=== PATIENT | female | born 1945 | race Caucasian/White ===

== ENCOUNTER 2020-09-11 19:02 | Inpatient (IN) | payer MEDICARE, OTHER ==
[2020-09-11] MEDS ORDERED: METHYLPREDNISOLONE INJ 125 MG/2 ML SDV IV ONE (20:49)
[2020-09-11] MEDS ORDERED: IPRATROPIUM/ALBUTEROL 0.5-2.5 MG/3 ML AMPUL NEB ONE ×2 (20:49→22:01)
[2020-09-11] MEDS ORDERED: MAGNESIUM SULFATE/D5W 1 GM/100 ML RTUPB IV ONE ×2 (20:49→22:02)
--- NOTE | 2020-09-11 20:53 | ER Document Report ---
ED Respiratory Problem - General Chief Complaint: Shortness Of Breath Stated Complaint: DIFFICULTY BREATHING Time Seen by Provider: 09/11/20 20:42 Notes: Patient is a 75-year-old female who comes emergency department for chief complaint of shortness of breath, wheezing, cough since yesterday, she states tonight she could not catch her breath. She denies sputum production, fever, chest pain, or any recent sick contacts. She has not had a recent COVID-19 test. She does smoke, she has a home albuterol nebulizer which was not helping. She states she is diagnosed with "maybe early COPD". She is not on home oxygen. Patient was seen by her primary care yesterday for frequency of urination and dysuria, placed on an antibiotic that she just started, states she still has the urinary symptoms. Patient denies any other complaints. She de nies medical history otherwise including cardiac history, diabetes, hypertension, hyperlipidemia. - Related Data Allergies/Adverse Reactions: Sulfa (Sulfonamide Antibiotics) Allergy (Verified 09/11/20 20:11) Home Medications: bp med/inhaler Past Medical History - General Information source: Patient - Social History Smoking Status: Current Every Day Smoker Smoking Education Provided: Yes - <3 min Frequency of alcohol use: Heavy Drug Abuse: None Lives with: Family Family History: Reviewed & Not Pertinent Patient has homicidal ideation: No - Past Medical History Cardiac Medical History: Reports: Hx Hypertension Pulmonary Medical History: Reports: Hx COPD Past Surgical History: Reports: Hx Appendectomy, Hx Gynecologic Surgery - ectopic x2 - Immunizations Immunizations up to date: Yes Hx Diphtheria, Pertussis, Tetanus Vaccination: Yes Review of Systems - Review of Systems Constitutional: See HPI EENT: No symptoms reported Cardiovascular: See HPI Respiratory: See HPI Gastrointestinal: No symptoms reported Genitourinary: No symptoms reported Female Genitourinary: No symptoms reported Musculoskeletal: No symptoms reported Skin: No symptoms reported Hematologic/Lymphatic: No symptoms reported Neurological/Psychological: No symptoms reported Physical Exam - Vital signs Vitals: Temp Pulse Resp BP Pulse Ox 98.6 F 97 26 H 151/40 H 88 L 09/11/20 19:18 09/11/20 19:18 09/11/20 19:18 09/11/20 19:18 09/11/20 19:18 - Notes Notes: GENERAL: Alert, interacts well. No acute distress. HEAD: Normocephalic, atraumatic. EYES: Pupils equal, round, and reactive to light. Extraocular movements intact. ENT: Oral mucosa moist, tongue midline. Oropharynx unremarkable. Airway patent. Nares patent, sinuses non-tender, ear canals unremarkable, TM's intact. NECK: Full range of motion. Supple. Trachea midline. No lymphadenopathy. LUNGS: Clear to auscultation bilaterally, no wheezes, rales, or rhonchi. No respiratory distress. Non-tender chest wall. HEART: Regular rate and rhythm. No murmur ABDOMEN: Soft, non-tender. Non-distended. Bowel sounds present in all 4 quadrants. GENITOURINARY: Deferred EXTREMITIES: Moves all 4 extremities spontaneously. No edema, normal radial and dorsalis pedis pulses bilaterally. No cyanosis. BACK: no cervical, thoracic, lumbar midline tenderness. No saddle anesthesia, normal distal neurovascular exam. Moves all extremities in full range of motion. NEUROLOGICAL: Alert and oriented x3. Normal speech. Cranial nerves II through XII grossly intact. Strength 5/5 in all extremities. PSYCH: Normal affect, normal mood. SKIN: Warm, dry, normal turgor. No rashes or lesions noted. Course - Re-evaluation Re-evalutation: On initial evaluation patient has tachypnea, she was hypoxic at 88% on room air, she was placed on oxygen, initiated duo nebs, steroids, magnesium. Initially breath sounds are very decreased but on reevaluation breath sounds opened up, wheezing and rhonchi noted. Tachypnea significantly improved and then resolved after additional treatments. Chest x-ray showing COPD, questionable right upper lobe pneumonia. CBC shows leukocytosis at 24,000 with bandemia at 8% left shift. Chemistry nonspecific, troponin is not elevated, venous blood gas unremarkable. Patient still with some tachypnea intermittently and shortness of breath along with I suspect bacterial pneumonia. She is also 75 years old. Covering with antibiotics for community-acquired pneumonia. Discussed with patient, will discuss with hospitalist for admission for patient with significant COPD exacerbation, hypoxia requiring oxygen, pneumonia with significant leukocytosis and left shift. Patient states appreciation and agreement. Discussed with Dr. Olvera, he evaluated the patient, patient excepted to medical floor full admission. - Vital Signs Vital signs: Temp Pulse Resp BP Pulse Ox 98.5 F 97 18 104/67 95 09/12/20 00:01 09/11/20 19:18 09/12/20 02:00 09/12/20 02:00 09/12/20 02:00 - Laboratory Results Result Diagrams: 09/11/20 21:20 09/11/20 22:00 Laboratory Results Interpreted: 09/11/20 09/11/20 09/11/20 20:49 21:20 21:20 WBC 24.7 H Seg Neuts % (Manual) 88 H Band Neutrophils % 8 H Lymphocytes % (Manual) 3 L Monocytes % (Manual) 1 L Abs Neuts (Manual) 23.7 H VBG pH 7.47 H VBG pCO2 30.0 L Sodium Glucose Total Bilirubin Urine Protein 30 H Urine Ketones 20 H Urine Blood MODERATE H Urine Urobilinogen 2.0 H Ur Leukocyte Esterase SMALL H 09/11/20 22:00 WBC Seg Neuts % (Manual) Band Neutrophils % Lymphocytes % (Manual) Monocytes % (Manual) Abs Neuts (Manual) VBG pH VBG pCO2 Sodium 131.9 L Glucose 149 H Total Bilirubin 1.8 H Urine Protein Urine Ketones Urine Blood Urine Urobilinogen Ur Leukocyte Esterase Critical Laboratory Results Reviewed: No Critical Results - Radiology Results Critical Radiology Results Reviewed: No Critical Results Discharge - Discharge Clinical Impression: Hypoxia, COPD exacerbation, Bandemia Right upper lobe pneumonia Qualifiers: Pneumonia type: due to unspecified organism Qualified Code(s): J18.9 - Pneumonia, unspecified organism Condition: Stable Disposition: ADMITTED INPATIENT Admitting Provider: Unit Admitted: Medical Floor
[2020-09-11 21:26] LABS: APPEARANCE,URINE SLIGHTLY-CLOUDY; BILIRUBIN,URINE NEGATIVE (NEGATIVE); COLOR,URINE AMBER; GLUCOSE, URINE NEGATIVE (NEGATIVE); KETONES,URINE 20 mg/dL (NEGATIVE); LEUKOCYTE ESTERASE,URINE SMALL (NEGATIVE); NITRITE,URINE NEGATIVE (NEGATIVE); PROTEIN,URINE 30 mg/dL (NEGATIVE); URINE SPECIFIC GRAVITY 1.019
[2020-09-11 21:43] LABS: HEMATOCRIT 40.8 % (36.0-47.0); MEAN CORPUSCULAR HEMOGLOBIN 30.9 pg (27.0-33.4); MEAN CORPUSCULAR HGB CONC 34.3 g/dL (32.0-36.0); MEAN CORPUSCULAR VOLUME 90 fl (80-97); PLATELET COUNT 295 10^3/uL (150-450); RED BLOOD COUNT 4.54 10^6/uL (3.72-5.28); RED CELL DISTRIBUTION WIDTH 12.9 % (11.5-14.0); WHITE BLOOD COUNT 24.7 10^3/uL (4.0-10.5)
--- NOTE | 2020-09-11 21:44 | RADIOLOGY REPORT (SQ) ---
EXAM DESCRIPTION: Site: CHEST SINGLE VIEW RP: XR CHEST 1 VIEW CLINICAL HISTORY: 75 years Female; difficulty breathing; COMPARISON: None. FINDINGS: Lungs: Hyperinflated. There are mild interstitial changes in the upper lobes, slightly worse on the right. No focal acute infiltrates. No pneumothorax or pleural effusion. Mediastinum: Mild aortic calcification. Mediastinum is otherwise unremarkable. Bones: Bony structures are unremarkable. IMPRESSION: 1. Hyperinflation and mild chronic interstitial changes, consistent with COPD. 2. No focal acute infiltrates. Cannot exclude an early/mild right upper lobe pneumonia, superimposed on the mild chronic changes.
[2020-09-11 21:47] LABS: VENOUS BLOOD BASE EXCESS -1.5 mmol/L; VENOUS BLOOD HCO3 21.3 mmol/L (20-32); VENOUS BLOOD PH 7.47 (7.30-7.42)
[2020-09-11 22:01] LABS: ABSOLUTE LYMPHOCYTES# (MANUAL) 0.7 10^3/uL (0.5-4.7); ABSOLUTE MONOCYTES # (MANUAL) 0.2 10^3/uL (0.1-1.4); BAND NEUTROPHILS % (MANUAL) 8 % (3-5); BASOPHILS % (MANUAL) 0 % (0-2); EOSINOPHILS % (MANUAL) 0 % (0-6); LYMPHOCYTES % (MANUAL) 3 % (13-45); MONOCYTES % (MANUAL) 1 % (3-13); SEGMENTED NEUTROPHILS % (MAN) 88 % (42-78); TOTAL CELLS COUNTED 100
[2020-09-11 22:03] LABS: RBC MORPHOLOGY COMMENT NORMO-CYTIC/CHROMIC; TOXIC VACUOLATION PRESENT
[2020-09-11 22:04] LABS: PLATELET COMMENT ADEQUATE
[2020-09-11 22:26] LABS: ALKALINE PHOSPHATASE 92 U/L (38-126); ANION GAP 7 (5-19); ASPARTATE AMINO TRANSFERASE 28 U/L (14-36); BILIRUBIN,DIRECT 0.2 mg/dL (0.0-0.4); BILIRUBIN,TOTAL 1.8 mg/dL (0.2-1.3); BLOOD UREA NITROGEN 17 mg/dL (7-20); CARBON DIOXIDE 25 mmol/L (22-30); CHLORIDE 100 mmol/L (98-107); GLUCOSE 149 mg/dL (75-110); POTASSIUM 3.6 mmol/L (3.6-5.0); TOTAL PROTEIN 7.4 g/dL (6.3-8.2)
[2020-09-11] MEDS ORDERED: AZITHROMYCIN INJ 500 MG VIAL IV ONE (22:39)
[2020-09-11] MEDS ORDERED: CEFTRIAXONE 1 GM/D5W RTU 1 GM/50 ML RTUPB IV ONE (22:39)
[2020-09-12] MEDS ORDERED: IPRATROPIUM/ALBUTEROL 0.5-2.5 MG/3 ML AMPUL NEB PRN (00:08)
[2020-09-12] MEDS ORDERED: ONDANSETRON HCL INJ/PF 4 MG/2 ML SDV IV PRN (00:08)
[2020-09-12] MEDS ORDERED: ACETAMINOPHEN 325 MG TABLET PO PRN (00:08)
--- NOTE | 2020-09-12 00:32 | PDOC H&P ---
History of Present Illness Patient complains of: Shortness of breath History of Present Illness: COLT CHI is a 75 year old female with a history of COPD and hypertension who presents to the ED with 1 day duration of shortness of breath. She stated that the shortness of breath started shortly after she woke up this morning and she tried to use albuterol inhaler but it did not help so she called EMS and was brought into the ED. She also reports that she was having wheezing but denies any associated cough, fever, chills, palpitation, dizziness, any recent sick contact history. She also denies any nausea, vomiting, diarrhea, nasal congestion, sore throat, any change in her sense of smell or taste. She states that she was seen by her primary care 1 day ago and was started on treatment for possible urinary tract infection. She is a chronic smoker and currently smokes half pack a day. Past Medical History Cardiac Medical History: Reports: Hypertension Pulmonary Medical History: Reports: Chronic Obstructive Pulmonary Disease (COPD) Past Surgical History Past Surgical History: Reports: Appendectomy Social History Information Source: Patient Lives with: Family Smoking Status: Current Every Day Smoker Frequency of Alcohol Use: Occasional Hx Recreational Drug Use: No Drugs: None - Advance Directive Resuscitation Status: Full Code Family History Parental Family History Reviewed: Yes Children Family History Reviewed: Yes Sibling(s) Family History Reviewed.: Yes Medication/Allergy Allergies/Adverse Reactions: Sulfa (Sulfonamide Antibiotics) Allergy (Verified 09/11/20 20:11) Review of Systems Constitutional: ABSENT: chills, fever(s), headache(s), weight gain, weight loss Eyes: ABSENT: visual disturbances Ears: ABSENT: hearing changes Nose, Mouth, and Throat: ABSENT: headache(s), mouth pain, sore throat Cardiovascular: ABSENT: chest pain, dyspnea on exertion, edema, orthropnea, palpitations Respiratory: PRESENT: as per HPI Gastrointestinal: ABSENT: abdominal pain, constipation, diarrhea, hematemesis, hematochezia, nausea, vomiting Genitourinary: PRESENT: as per HPI Musculoskeletal: ABSENT: joint swelling Integumentary: ABSENT: rash, wounds Neurological: ABSENT: abnormal gait, abnormal speech, confusion, dizziness, focal weakness, syncope Psychiatric: ABSENT: anxiety, depression, homidical ideation, suicidal ideation Endocrine: ABSENT: cold intolerance, heat intolerance, polydipsia, polyuria Hematologic/Lymphatic: ABSENT: easy bleeding, easy bruising Physical Exam Vital Signs: Temp Pulse Resp BP Pulse Ox 98.6 F 97 21 H 116/71 94 09/11/20 19:18 09/11/20 19:18 09/11/20 23:01 09/11/20 23:00 09/11/20 23:01 Intake & Output 09/10/20 09/11/20 09/12/20 06:59 06:59 06:59 Intake Total 200 Balance 200 Weight 52.617 kg Additional comments: GENERAL APPEARANCE: Alert and oriented x3, in no acute distress HEENT: Normocephalic and atraumatic. No scleral icterus. Moist oral mucosa NECK: Supple. No lymphadenopathy or tenderness. No carotid bruit. No JVD CHEST: Symmetric. Nontender to palpation. LUNGS: Clear with good air entry bilaterally. Has faint scattered wheezes bilaterally HEART: Regular rate and rhythm with normal S1 and S2. No murmurs, gallops, or rubs. ABDOMEN: Flat, soft, active bowel sounds, no direct or rebound tenderness. No organomegaly detected. EXTREMITIES: No cyanosis, clubbing, or edema. MUSCULOSKELETAL: No deformity, atrophy or swelling noted PSYCHIATRIC: Recent and remote memory is intact. Appropriate mood and affect. SKIN: Warm, dry, and well perfused. No lesions or rashes are noted. NEUROLOGIC: No focal sensory or motor deficits are noted. Results Laboratory Results: 09/11/20 21:20 09/11/20 22:00 09/11/20 09/11/20 09/11/20 20:49 21:20 21:20 WBC 24.7 H RBC 4.54 Hgb 14.0 Hct 40.8 MCV 90 MCH 30.9 MCHC 34.3 RDW 12.9 Plt Count 295 Seg Neutrophils % Not Reportable VBG pH VBG pCO2 VBG HCO3 VBG Base Excess Sodium Cancelled Potassium Cancelled Chloride Cancelled Carbon Dioxide Cancelled Anion Gap Cancelled BUN Cancelled Creatinine Cancelled Est GFR ( Amer) Cancelled Est GFR (Non-Af Amer) Cancelled Glucose Cancelled Lactic Acid Calcium Cancelled Total Bilirubin Cancelled AST Cancelled Alkaline Phosphatase Cancelled Total Protein Cancelled Albumin Cancelled Urine Color YASMEEN Urine Appearance SLIGHTLY-CLOUDY Urine pH 5.0 Ur Specific [place] 1.019 Urine Protein 30 H Urine Glucose (UA) NEGATIVE Urine Ketones 20 H Urine Blood MODERATE H Urine Nitrite NEGATIVE Ur Leukocyte Esterase SMALL H Urine WBC (Auto) 22 Urine RBC (Auto) 23 09/11/20 09/11/20 09/11/20 21:20 22:00 22:00 WBC RBC Hgb Hct MCV MCH MCHC RDW Plt Count Seg Neutrophils % VBG pH 7.47 H VBG pCO2 30.0 L VBG HCO3 21.3 VBG Base Excess -1.5 Sodium 131.9 L Potassium 3.6 Chloride 100 Carbon Dioxide 25 Anion Gap 7 BUN 17 Creatinine 0.54 Est GFR ( Amer) > 60 Est GFR (Non-Af Amer) Glucose 149 H Lactic Acid 1.5 Calcium 9.0 Total Bilirubin 1.8 H AST 28 Alkaline Phosphatase 92 Total Protein 7.4 Albumin 4.0 Urine Color Urine Appearance Urine pH Ur Specific [place] Urine Protein Urine Glucose (UA) Urine Ketones Urine Blood Urine Nitrite Ur Leukocyte Esterase Urine WBC (Auto) Urine RBC (Auto) 09/11/20 09/11/20 21:20 22:00 Troponin I Cancelled < 0.012 Impressions: Chest X-Ray 09/11/20 20:49 IMPRESSION: 1. Hyperinflation and mild chronic interstitial changes, consistent with COPD. 2. No focal acute infiltrates. Cannot exclude an early/mild right upper lobe pneumonia, superimposed on the mild chronic changes. Assessment and Plan - Diagnosis (1) COPD exacerbation Is this a current diagnosis for this admission?: Yes Plan: Patient presents with a 1 day duration of shortness of breath with associated wheezing Oxygen saturation was 88% on presentation to the ED Likely precipitated by community-acquired pneumonia Chest x-ray showed hyperinflated lungs and chronic interstitial changes, early right upper lobe pneumonia could not be excluded Patient received Solu-Medrol, magnesium sulfate and DuoNeb at the ED with interval improvement in her symptoms Continue breathing treatment with DuoNeb Placed her on prednisone 40 mg p.o. daily Currently on 2 L intranasal oxygen, will titrate down and try to wean her off oxygen On ceftriaxone and azithromycin for possible right upper lobe pneumonia Closely monitor respiratory parameters (2) Right upper lobe pneumonia Qualifiers: Pneumonia type: due to unspecified organism Qualified Code(s): J18.9 - Pneumonia, unspecified organism Is this a current diagnosis for this admission?: Yes Plan: Patient currently admitted for COPD exacerbation Denies any significant change in her chronic cough CBC showed WBC count of 24.7 with left shift Chest x-ray showed hyperinflated lungs with chronic interstitial changes but was concerning for possible early right upper lobe pneumonia Started on ceftriaxone and azithromycin Follow-up with blood culture (3) Leukocytosis Is this a current diagnosis for this admission?: Yes Plan: Likely due to pneumonia/UTI versus steroid administered for COPD exacerbation Continue treating pneumonia as stated above Continue monitoring CBC (4) UTI (urinary tract infection) Is this a current diagnosis for this admission?: Yes Plan: Patient reports increased frequency of urination and urgency Was being treated for UTI by his PCP and was on an unspecified antibiotic for the past 2 days Currently on ceftriaxone, follow-up with urine culture/sensitivity and adjust antibiotic accordingly (5) Hypertension Is this a current diagnosis for this admission?: Yes Plan: Blood pressure is currently in acceptable range Continue home medications Low-sodium diet Continue monitoring BP (6) Tobacco dependence Is this a current diagnosis for this admission?: Yes Plan: Currently patient smokes half pack a day Counseled her to quit or cut down smoking and patient reported that she is motivated to quit Offered nicotine patch while inpatient but she deferred stating that she would not needed (7) Hyponatremia Is this a current diagnosis for this admission?: Yes Plan: Patient has mild-hyponatremia, he is asymptomatic Serum sodium level was 132 Was hydrated at the ED with normal saline We will continue monitoring serum sodium level - Time Time Spent with patient: 35 or more minutes Total Critical Time (Minutes): 45 Medications reviewed and adjusted accordingly: Yes Anticipated Discharge Disposition: Home, Self Care Anticipated Discharge Timeframe: within 48 hours - Inpatient Certification Based on my medical assessment, after consideration of the patient's comorbidities, presenting symptoms, or acuity I expect that the services needed warrant INPATIENT care.: Yes I certify that my determination is in accordance with my understanding of Medicare's requirements for reasonable and necessary INPATIENT services [42 CFR 412.3e].: Yes Medical Necessity: Failure to Improve With Outpatient Therapy, Need Close Monitoring Due to Risk of Patient Decompensation, Need for Nebulizer Therapy and Monitoring of Response, Need for IV Antibiotics, Risk of Complication if Not Cared For in Hospital Post Hospital Care: D/C or Transfer Summary
[2020-09-12 06:12] LABS: HEMATOCRIT 37.6 % (36.0-47.0); HEMOGLOBIN 12.8 g/dL (12.0-15.5); MEAN CORPUSCULAR HEMOGLOBIN 30.5 pg (27.0-33.4); MEAN CORPUSCULAR VOLUME 90 fl (80-97); PLATELET COUNT 248 10^3/uL (150-450); RED BLOOD COUNT 4.19 10^6/uL (3.72-5.28); RED CELL DISTRIBUTION WIDTH 13.4 % (11.5-14.0); WHITE BLOOD COUNT 23.3 10^3/uL (4.0-10.5)
[2020-09-12 06:29] LABS: ANION GAP 5 (5-19); BLOOD UREA NITROGEN 16 mg/dL (7-20); CALCIUM 8.8 mg/dL (8.4-10.2); CARBON DIOXIDE 28 mmol/L (22-30); CHLORIDE 100 mmol/L (98-107); GLUCOSE 154 mg/dL (75-110); POTASSIUM 3.7 mmol/L (3.6-5.0)
[2020-09-12 06:44] LABS: ABSOLUTE LYMPHOCYTES# (MANUAL) 0.5 10^3/uL (0.5-4.7); BAND NEUTROPHILS % (MANUAL) 1 % (3-5); BASOPHILS % (MANUAL) 0 % (0-2); EOSINOPHILS % (MANUAL) 0 % (0-6); LYMPHOCYTES % (MANUAL) 2 % (13-45); MONOCYTES % (MANUAL) 0 % (3-13); SEGMENTED NEUTROPHILS % (MAN) 97 % (42-78); TOTAL CELLS COUNTED 100
[2020-09-12 06:45] LABS: PLATELET COMMENT ADEQUATE; RBC MORPHOLOGY COMMENT NORMO-CYTIC/CHROMIC; TOXIC GRANULATION SLIGHT
[2020-09-12] MEDS: FAMOTIDINE 20 MG TABLET PO SCH ×2 (09:18→21:48)
[2020-09-12] MEDS: PREDNISONE 20 MG TABLET PO SCH (09:18)
[2020-09-12] MEDS: ENOXAPARIN SODIUM INJ 40 MG/0.4 ML DISP.SYRIN SUBCUT SCH (09:19)
[2020-09-12] MEDS: AZITHROMYCIN 500 MG in DEXTROSE 5%-WATER 250 ML IV SCH (21:48)
[2020-09-12] MEDS ORDERED: CEFTRIAXONE 1 GM/D5W RTU 1 GM/50 ML RTUPB IV SCH (22:00)
[2020-09-13 05:06] LABS: HEMATOCRIT 35.1 % (36.0-47.0); HEMOGLOBIN 12.1 g/dL (12.0-15.5); MEAN CORPUSCULAR HEMOGLOBIN 31.1 pg (27.0-33.4); MEAN CORPUSCULAR HGB CONC 34.5 g/dL (32.0-36.0); MEAN CORPUSCULAR VOLUME 90 fl (80-97); PLATELET COUNT 309 10^3/uL (150-450); RED CELL DISTRIBUTION WIDTH 13.3 % (11.5-14.0)
[2020-09-13 05:53] LABS: ABSOLUTE LYMPHOCYTES# (MANUAL) 2.9 10^3/uL (0.5-4.7); ABSOLUTE MONOCYTES # (MANUAL) 1.6 10^3/uL (0.1-1.4); BAND NEUTROPHILS % (MANUAL) 2 % (3-5); BASOPHILS % (MANUAL) 0 % (0-2); EOSINOPHILS % (MANUAL) 1 % (0-6); LYMPHOCYTES % (MANUAL) 8 % (13-45); MONOCYTES % (MANUAL) 5 % (3-13); SEGMENTED NEUTROPHILS % (MAN) 83 % (42-78); TOTAL CELLS COUNTED 100
[2020-09-13 05:54] LABS: PLATELET CLUMPS PRESENT; PLATELET COMMENT ADEQUATE; RBC MORPHOLOGY COMMENT NORMO-CYTIC/CHROMIC
[2020-09-13 05:56] LABS: WHITE BLOOD COUNT 32.4 10^3/uL (4.0-10.5)
[2020-09-13] MEDS: PREDNISONE 20 MG TABLET PO SCH (09:30)
[2020-09-13] MEDS: ENOXAPARIN SODIUM INJ 40 MG/0.4 ML DISP.SYRIN SUBCUT SCH (09:31)
[2020-09-13] MEDS: FAMOTIDINE 20 MG TABLET PO SCH ×2 (09:31→21:27)
[2020-09-13 13:58] LABS: PATH REVIEW PATHOLOGIST REVIEWED
--- NOTE | 2020-09-13 14:36 | PDOC PROGRESS REPORT ---
Subjective Date:: 09/13/20 Reason For Visit: ACUTE HYPOXIC RESPIRATORY FAILURE,COPD EXACERBATIO Physical Exam Vital Signs: Temp Pulse Resp BP Pulse Ox 97.3 F 65 12 110/49 L 94 09/13/20 11:15 09/13/20 14:12 09/13/20 14:12 09/13/20 11:15 09/13/20 14:12 Intake & Output 09/12/20 09/13/20 09/14/20 06:59 06:59 06:59 Intake Total 250 300 680 Balance 250 300 680 Weight 48.1 kg 47.7 kg General appearance: PRESENT: no acute distress, thin Head exam: PRESENT: atraumatic, normocephalic Eye exam: PRESENT: conjunctiva pink, EOMI, PERRLA. ABSENT: scleral icterus Ear exam: PRESENT: normal external ear exam Mouth exam: PRESENT: moist, tongue midline Neck exam: ABSENT: carotid bruit, JVD, lymphadenopathy, thyromegaly Respiratory exam: PRESENT: decreased breath sounds, wheezes - scattered. ABSENT: rales, rhonchi Cardiovascular exam: PRESENT: RRR, +S1, +S2. ABSENT: diastolic murmur, rubs, systolic murmur Pulses: PRESENT: normal dorsalis pedis pul Vascular exam: PRESENT: normal capillary refill GI/Abdominal exam: PRESENT: normal bowel sounds, soft. ABSENT: distended, guarding, mass, organolmegaly, rebound, tenderness Rectal exam: PRESENT: deferred Extremities exam: PRESENT: full ROM. ABSENT: calf tenderness, clubbing, pedal edema Neurological exam: PRESENT: alert, awake, oriented to person, oriented to place, oriented to time, oriented to situation, CN II-XII grossly intact. ABSENT: motor sensory deficit Psychiatric exam: PRESENT: appropriate affect, normal mood. ABSENT: homicidal ideation, suicidal ideation Skin exam: PRESENT: dry, intact, warm. ABSENT: cyanosis, rash Results Laboratory Results: 09/13/20 04:31 09/12/20 05:26 09/13/20 04:31 WBC 32.4 H* RBC 3.90 Hgb 12.1 Hct 35.1 L MCV 90 MCH 31.1 MCHC 34.5 RDW 13.3 Plt Count 309 Seg Neutrophils % Not Reportable 09/11/20 09/11/20 21:20 22:00 Troponin I Cancelled < 0.012 Impressions: Chest X-Ray 09/11/20 20:49 IMPRESSION: 1. Hyperinflation and mild chronic interstitial changes, consistent with COPD. 2. No focal acute infiltrates. Cannot exclude an early/mild right upper lobe pneumonia, superimposed on the mild chronic changes. Assessment and Plan - Diagnosis (1) Acute hypoxemic respiratory failure Is this a current diagnosis for this admission?: Yes (2) Protein-calorie malnutrition, moderate Is this a current diagnosis for this admission?: Yes (3) COPD exacerbation Is this a current diagnosis for this admission?: Yes Plan: Patient presents with a 1 day duration of shortness of breath with associated wheezing Oxygen saturation was 88% on presentation to the ED Likely precipitated by community-acquired pneumonia Chest x-ray showed hyperinflated lungs and chronic interstitial changes, early right upper lobe pneumonia could not be excluded Patient received Solu-Medrol, magnesium sulfate and DuoNeb at the ED with interval improvement in her symptoms Continue breathing treatment with DuoNeb Placed her on prednisone 40 mg p.o. daily Currently on 2 L intranasal oxygen, will titrate down and try to wean her off oxygen On ceftriaxone and azithromycin for possible right upper lobe pneumonia Closely monitor respiratory parameters 09/13 Improving, still has scattered wheezing Continue oxygen support and wean as tolerated (4) Hypertension Is this a current diagnosis for this admission?: Yes Plan: Blood pressure is currently in acceptable range Continue home medications Low-sodium diet Continue monitoring BP (5) Leukocytosis Is this a current diagnosis for this admission?: Yes Plan: Likely due to pneumonia/UTI versus steroid administered for COPD exacerbation Continue treating pneumonia as stated above Possibly leukemoid reaction. There is no evidence of worsening clinical infection. Will taper steroids and continue to monitor CBC (6) Right upper lobe pneumonia Qualifiers: Pneumonia type: due to unspecified organism Qualified Code(s): J18.9 - Pneumonia, unspecified organism Is this a current diagnosis for this admission?: Yes Plan: Patient currently admitted for COPD exacerbation Denies any significant change in her chronic cough CBC showed WBC count of 24.7 with left shift Chest x-ray showed hyperinflated lungs with chronic interstitial changes but was concerning for possible early right upper lobe pneumonia Cont on ceftriaxone and azithromycin (7) Tobacco dependence Is this a current diagnosis for this admission?: Yes Plan: Currently patient smokes half pack a day Counseled her to quit or cut down smoking and patient reported that she is motivated to quit (8) UTI (urinary tract infection) Is this a current diagnosis for this admission?: Yes Plan: Patient reports increased frequency of urination and urgency Was being treated for UTI by his PCP and was on an unspecified antibiotic for the past 2 days No urine culture obtained - Time Time Spent with patient: 15-24 minutes Medications reviewed and adjusted accordingly: Yes Anticipated Discharge Disposition: Home, Self Care Anticipated Discharge Timeframe: within 48 hours
[2020-09-13] MEDS: AZITHROMYCIN 500 MG in DEXTROSE 5%-WATER 250 ML IV SCH (21:28)
[2020-09-13] MEDS: CEFTRIAXONE SODIUM 1,000 MG in DEXTROSE 5%-WATER 50 ML IV SCH (23:29)
[2020-09-14 07:20] LABS: ABSOLUTE EOSINOPHILS # (AUTO) 0.2 10^3/uL (0.0-0.6); ABSOLUTE LYMPHOCYTES (AUTO) 2.6 10^3/uL (0.5-4.7); ABSOLUTE MONOCYTES (AUTO) 0.9 10^3/uL (0.1-1.4); ABSOLUTE NEUT (AUTO) 12.8 10^3/uL (1.7-8.2); BASOPHILS % (AUTO) 0.2 % (0-2); EOSINOPHILS % (AUTO) 1.1 % (0-6); HEMATOCRIT 37.6 % (36.0-47.0); HEMOGLOBIN 12.6 g/dL (12.0-15.5); LYMPHOCYTES % (AUTO) 15.7 % (13-45); MEAN CORPUSCULAR HEMOGLOBIN 30.5 pg (27.0-33.4); MEAN CORPUSCULAR HGB CONC 33.6 g/dL (32.0-36.0); MEAN CORPUSCULAR VOLUME 91 fl (80-97); MONOCYTES % (AUTO) 5.5 % (3-13); PLATELET COUNT 299 10^3/uL (150-450); RED BLOOD COUNT 4.14 10^6/uL (3.72-5.28); RED CELL DISTRIBUTION WIDTH 13.6 % (11.5-14.0); SEGMENTED NEUTROPHILS % (AUTO) 77.5 % (42-78); TOTAL CELLS COUNTED % (AUTO) 100 %; WHITE BLOOD COUNT 16.5 10^3/uL (4.0-10.5)
[2020-09-14] MEDS: FAMOTIDINE 20 MG TABLET PO SCH ×2 (09:23→22:34)
[2020-09-14] MEDS: PREDNISONE 20 MG TABLET PO SCH (09:24)
[2020-09-14] MEDS: ENOXAPARIN SODIUM INJ 40 MG/0.4 ML DISP.SYRIN SUBCUT SCH (09:25)
--- NOTE | 2020-09-14 12:11 | PDOC PROGRESS REPORT ---
Subjective Date:: 09/14/20 Subjective:: Patient reports that she is feeling better. Wheezing is much improved. She how ever did state that she had episodes of difficulty breathing and wheezing during the night that required bronchodilators. Her oxygenation has improved and likely will not require oxygen at home Reason For Visit: ACUTE HYPOXIC RESPIRATORY FAILURE,COPD EXACERBATIO Physical Exam Vital Signs: Temp Pulse Resp BP Pulse Ox 97.4 F 68 16 132/68 H 98 09/14/20 11:17 09/14/20 11:17 09/14/20 11:17 09/14/20 11:17 09/14/20 11:17 Intake & Output 09/13/20 09/14/20 09/15/20 06:59 06:59 06:59 Intake Total 300 1170 240 Balance 300 1170 240 Weight 47.7 kg 48 kg General appearance: PRESENT: no acute distress, thin Head exam: PRESENT: atraumatic, normocephalic Eye exam: PRESENT: EOMI, PERRLA. ABSENT: scleral icterus Mouth exam: PRESENT: moist, tongue midline Neck exam: ABSENT: carotid bruit, JVD, lymphadenopathy, thyromegaly Respiratory exam: PRESENT: other - Improved air entry with scattered wheezing. ABSENT: rales, rhonchi, wheezes Cardiovascular exam: PRESENT: RRR, +S1, +S2. ABSENT: diastolic murmur, rubs, systolic murmur Pulses: PRESENT: normal dorsalis pedis pul Vascular exam: PRESENT: normal capillary refill GI/Abdominal exam: PRESENT: normal bowel sounds, soft. ABSENT: distended, guarding, mass, organolmegaly, rebound, tenderness Rectal exam: PRESENT: deferred Extremities exam: PRESENT: full ROM. ABSENT: calf tenderness, clubbing, pedal edema Neurological exam: PRESENT: alert, awake, oriented to person, oriented to place, oriented to time, oriented to situation, CN II-XII grossly intact. ABSENT: motor sensory deficit Psychiatric exam: PRESENT: appropriate affect, normal mood. ABSENT: homicidal ideation, suicidal ideation Skin exam: PRESENT: dry, intact, warm. ABSENT: cyanosis, rash Results Laboratory Results: 09/14/20 06:54 09/12/20 05:26 09/14/20 06:54 WBC 16.5 H RBC 4.14 Hgb 12.6 Hct 37.6 MCV 91 MCH 30.5 MCHC 33.6 RDW 13.6 Plt Count 299 Seg Neutrophils % 77.5 09/11/20 09/11/20 21:20 22:00 Troponin I Cancelled < 0.012 Impressions: Chest X-Ray 09/11/20 20:49 IMPRESSION: 1. Hyperinflation and mild chronic interstitial changes, consistent with COPD. 2. No focal acute infiltrates. Cannot exclude an early/mild right upper lobe pneumonia, superimposed on the mild chronic changes. Assessment and Plan - Diagnosis (1) Acute hypoxemic respiratory failure Is this a current diagnosis for this admission?: Yes (2) Protein-calorie malnutrition, moderate Is this a current diagnosis for this admission?: Yes (3) COPD exacerbation Is this a current diagnosis for this admission?: Yes (4) Hypertension Is this a current diagnosis for this admission?: Yes (5) Leukocytosis Is this a current diagnosis for this admission?: Yes (6) Right upper lobe pneumonia Qualifiers: Pneumonia type: due to unspecified organism Qualified Code(s): J18.9 - Pneumonia, unspecified organism Is this a current diagnosis for this admission?: Yes (7) Tobacco dependence Is this a current diagnosis for this admission?: Yes (8) UTI (urinary tract infection) Is this a current diagnosis for this admission?: Yes - Plan Summary Summary: 09/14 Patient continues to improve however she still has episodes of bronchospasm and believe she will benefit from at least another day in the hospital. Leukocytosis has improved. This is likely due to the initial steroid dose that she had received as there is no sign of worsening infection. At this point I think she will require no home oxygen. She has been advised to ambulate - Time Time Spent with patient: 15-24 minutes Medications reviewed and adjusted accordingly: Yes Anticipated Discharge Disposition: Home, Self Care Anticipated Discharge Timeframe: within 48 hours
[2020-09-14] MEDS: FLUTICASONE/VILANTEROL 100-25 MCG/DOSE IH SCH (15:07)
[2020-09-14] MEDS ORDERED: IPRATROPIUM/ALBUTEROL 0.5-2.5 MG/3 ML AMPUL NEB SCH (16:00)
[2020-09-14] MEDS: CEFTRIAXONE SODIUM 1,000 MG in DEXTROSE 5%-WATER 50 ML IV SCH (22:40)
[2020-09-14] MEDS: AZITHROMYCIN 500 MG in DEXTROSE 5%-WATER 250 ML IV SCH (23:32)
[2020-09-15 07:34] LABS: ABSOLUTE EOSINOPHILS # (AUTO) 0.1 10^3/uL (0.0-0.6); ABSOLUTE MONOCYTES (AUTO) 0.9 10^3/uL (0.1-1.4); BASOPHILS % (AUTO) 0.1 % (0-2); EOSINOPHILS % (AUTO) 0.8 % (0-6); HEMATOCRIT 36.3 % (36.0-47.0); HEMOGLOBIN 12.5 g/dL (12.0-15.5); LYMPHOCYTES % (AUTO) 24.8 % (13-45); MEAN CORPUSCULAR HEMOGLOBIN 31.4 pg (27.0-33.4); MEAN CORPUSCULAR HGB CONC 34.3 g/dL (32.0-36.0); MEAN CORPUSCULAR VOLUME 92 fl (80-97); MONOCYTES % (AUTO) 7.5 % (3-13); PLATELET COUNT 345 10^3/uL (150-450); RED BLOOD COUNT 3.97 10^6/uL (3.72-5.28); RED CELL DISTRIBUTION WIDTH 13.2 % (11.5-14.0); SEGMENTED NEUTROPHILS % (AUTO) 66.8 % (42-78); TOTAL CELLS COUNTED % (AUTO) 100 %
[2020-09-15] MEDS: PREDNISONE 20 MG TABLET PO SCH (10:10)
[2020-09-15] MEDS: FAMOTIDINE 20 MG TABLET PO SCH (10:10)
[2020-09-15] MEDS: FLUTICASONE/VILANTEROL 100-25 MCG/DOSE IH SCH (10:11)
[2020-09-15] MEDS: ENOXAPARIN SODIUM INJ 40 MG/0.4 ML DISP.SYRIN SUBCUT SCH (10:11)
[2020-09-15] MEDS ORDERED: AMLODIPINE BESYLATE 2.5 MG TABLET PO ONE (11:30)
[2020-09-15] MEDS ORDERED: PNEUMOC 13-VAL CONJ-DIP CRM/PF 0.5 ML DISP.SYRIN IM PRN (11:35)
--- NOTE | 2020-09-15 12:54 | PDOC DISCHARGE SUMMARY ---
Impression - Admit/DC Date/PCP Admission Date/Primary Care Provider: 09/12/20 08:53 Discharge Date: 09/15/20 - Discharge Diagnosis (1) Acute hypoxemic respiratory failure Is this a current diagnosis for this admission?: Yes (2) Protein-calorie malnutrition, moderate Is this a current diagnosis for this admission?: Yes (3) COPD exacerbation Is this a current diagnosis for this admission?: Yes (4) Hypertension Is this a current diagnosis for this admission?: Yes (5) Leukocytosis Is this a current diagnosis for this admission?: Yes (6) Right upper lobe pneumonia Is this a current diagnosis for this admission?: Yes (7) Tobacco dependence Is this a current diagnosis for this admission?: Yes (8) UTI (urinary tract infection) Is this a current diagnosis for this admission?: Yes - Assessment Summary: 09/14 Patient continues to improve however she still has episodes of bronchospasm and believe she will benefit from at least another day in the hospital. Leukocytosis has improved. This is likely due to the initial steroid dose that she had received as there is no sign of worsening infection. At this point I think she will require no home oxygen. She has been advised to ambulate - Additional Information Resuscitation Status: Full Code Discharge Diet: Cardiac Discharge Activity: Activity As Tolerated Prescriptions: Albuterol Sulfate [Albuterol Sulfate Hfa] 6.7 gm IH Q6HP PRN #1 hfa.[email or web address] PRN Reason: Shortness Of Breath Fluticasone/Vilanterol [Breo 100-25 Mcg Ellipta 14 Dose/Dpi] 1 inh IH DAILY #1 inhaler Prednisone [Deltasone 20 mg Tablet] 40 mg PO DAILY #4 tablet Ipratropium/Albuterol Sulfate [Duoneb 3 ml Ampul] 3 ml NEB RTQ4HP PRN #100 ml PRN Reason: Azithromycin [Zithromax 250 mg Tablet] 500 mg PO DAILY #5 tab Home Medications: Amlodipine Besylate [Norvasc 2.5 mg Tablet] 2.5 mg PO DAILY 09/12/20 Ipratropium [place] [Atrovent Hfa] 2 puff IH BID 09/12/20 Albuterol Sulfate [Albuterol Sulfate Hfa] 6.7 gm IH Q6HP PRN #1 hfa.aer.ad 09/15/20 Azithromycin [Zithromax 250 mg Tablet] 500 mg PO DAILY #5 tab 09/15/20 Fluticasone/Vilanterol [Breo 100-25 Mcg Ellipta 14 Dose/Dpi] 1 inh IH DAILY #1 inhaler 09/15/20 Ipratropium/Albuterol Sulfate [Duoneb 3 ml Ampul] 3 ml NEB RTQ4HP PRN #100 ml 09/15/20 Prednisone [Deltasone 20 mg Tablet] 40 mg PO DAILY #4 tablet 09/15/20 History of Present Illiness History of Present Illness: COLT CHI is a 75 year old female Patient presents to the emergency room with complaints of difficulty breathing and shortness of breath. She was found with acute hypoxemic respiratory failure and so was admitted for further evaluation and management. Hospital Course Hospital Course: Patient was found to be initially hypoxemic with oxygen saturation of 88%. Chest x-ray showed possible right upper lobe infiltrate superimposed on the chronic changes. He was also thought to have a mild urinary tract infection. Patient was started on intravenous antibiotics as well as bronchodilators, and steroids. He received oxygen for supportive therapy and she was ultimately weaned off as her oxygen level improved. Patient has continued to improve while in hospital. She does have a history of tobacco abuse and she has been advised on the need to abstain from tobacco abuse going forward. Patient has otherwise been hemodynamically stable and with resolution of her presenting symptoms and clinical improvement Physical Exam Vital Signs: Temp Pulse Resp BP Pulse Ox 97.9 F 55 L 16 153/74 H 98 09/15/20 07:34 09/15/20 07:34 09/15/20 07:34 09/15/20 07:34 09/15/20 07:34 Intake & Output 09/14/20 09/15/20 09/16/20 06:59 06:59 06:59 Intake Total 1170 790 Balance 1170 790 Weight 48 kg 48 kg General appearance: PRESENT: no acute distress, thin Head exam: PRESENT: atraumatic, normocephalic Eye exam: PRESENT: conjunctiva pink, EOMI, PERRLA. ABSENT: scleral icterus Ear exam: PRESENT: normal external ear exam Mouth exam: PRESENT: moist, tongue midline Neck exam: ABSENT: carotid bruit, JVD, lymphadenopathy, thyromegaly Respiratory exam: PRESENT: clear to auscultation jenifer, unlabored. ABSENT: rales, rhonchi, wheezes Cardiovascular exam: PRESENT: RRR, +S1, +S2. ABSENT: diastolic murmur, rubs, systolic murmur Pulses: PRESENT: normal dorsalis pedis pul Vascular exam: PRESENT: normal capillary refill GI/Abdominal exam: PRESENT: normal bowel sounds, soft. ABSENT: distended, guarding, mass, organolmegaly, rebound, tenderness Rectal exam: PRESENT: deferred Extremities exam: PRESENT: full ROM. ABSENT: calf tenderness, clubbing, pedal edema Neurological exam: PRESENT: alert, awake, oriented to person, oriented to place, oriented to time, oriented to situation, CN II-XII grossly intact. ABSENT: motor sensory deficit Psychiatric exam: PRESENT: appropriate affect, normal mood. ABSENT: homicidal i deation, suicidal ideation Skin exam: PRESENT: dry, intact, warm. ABSENT: cyanosis, rash Results Laboratory Results: WBC 12.0 10^3/uL (4.0-10.5) H 09/15/20 07:05 RBC 3.97 10^6/uL (3.72-5.28) 09/15/20 07:05 Hgb 12.5 g/dL (12.0-15.5) 09/15/20 07:05 Hct 36.3 % (36.0-47.0) 09/15/20 07:05 MCV 92 fl (80-97) 09/15/20 07:05 MCH 31.4 pg (27.0-33.4) 09/15/20 07:05 MCHC 34.3 g/dL (32.0-36.0) 09/15/20 07:05 RDW 13.2 % (11.5-14.0) 09/15/20 07:05 Plt Count 345 10^3/uL (150-450) 09/15/20 07:05 Lymph % (Auto) 24.8 % (13-45) 09/15/20 07:05 [place] % (Auto) 7.5 % (3-13) 09/15/20 07:05 Eos % (Auto) 0.8 % (0-6) 09/15/20 07:05 Baso % (Auto) 0.1 % (0-2) 09/15/20 07:05 Absolute Neuts (auto) 8.0 10^3/uL (1.7-8.2) 09/15/20 07:05 Absolute Lymphs (auto) 3.0 10^3/uL (0.5-4.7) 09/15/20 07:05 Absolute Monos (auto) 0.9 10^3/uL (0.1-1.4) 09/15/20 07:05 Absolute Eos (auto) 0.1 10^3/uL (0.0-0.6) 09/15/20 07:05 Absolute Basos (auto) 0.0 10^3/uL (0.0-0.2) 09/15/20 07:05 Total Counted 100 09/13/20 04:31 Seg Neutrophils % 66.8 % (42-78) 09/15/20 07:05 Seg Neuts % (Manual) 83 % (42-78) H 09/13/20 04:31 Band Neutrophils % 2 % (3-5) L 09/13/20 04:31 Lymphocytes % (Manual) 8 % (13-45) L 09/13/20 04:31 Atypical Lymphs % 1 % (0) 09/13/20 04:31 Monocytes % (Manual) 5 % (3-13) 09/13/20 04:31 Eosinophils % (Manual) 1 % (0-6) 09/13/20 04:31 Basophils % (Manual) 0 % (0-2) 09/13/20 04:31 Abs Neuts (Manual) 27.5 10^3/uL (1.7-8.2) H 09/13/20 04:31 Abs Lymphs (Manual) 2.9 10^3/uL (0.5-4.7) 09/13/20 04:31 Abs Monocytes (Manual) 1.6 10^3/uL (0.1-1.4) H 09/13/20 04:31 Absolute Eos (Manual) 0.3 10^3/uL (0.0-0.6) 09/13/20 04:31 Abs Basophils (Manual) 0.0 10^3/uL (0.0-0.2) 09/13/20 04:31 Toxic Granulation SLIGHT 09/12/20 05:26 Toxic Vacuolation PRESENT 09/11/20 21:20 Clumped Platelets PRESENT 09/13/20 04:31 Platelet Comment ADEQUATE 09/13/20 04:31 RBC Morph Comment NORMO-CYTIC/CHROMIC 09/13/20 04:31 VBG pH 7.47 (7.30-7.42) H 09/11/20 21:20 VBG pCO2 30.0 mmHg (35-63) L 09/11/20 21:20 VBG HCO3 21.3 mmol/L (20-32) 09/11/20 21:20 VBG Base Excess -1.5 mmol/L 09/11/20 21:20 Sodium 133.1 mmol/L (137-145) L 09/12/20 05:26 Potassium 3.7 mmol/L (3.6-5.0) 09/12/20 05:26 Chloride 100 mmol/L (98-107) 09/12/20 05:26 Carbon Dioxide 28 mmol/L (22-30) 09/12/20 05:26 Anion Gap 5 (5-19) 09/12/20 05:26 BUN 16 mg/dL (7-20) 09/12/20 05:26 Creatinine 0.55 mg/dL (0.52-1.25) 09/12/20 05:26 Est GFR ( Amer) > 60 (>60) 09/12/20 05:26 Est GFR (Non-Af Amer) Cancelled 09/11/20 21:20 Est GFR (MDRD) Non-Af > 60 (>60) 09/12/20 05:26 Glucose 154 mg/dL (75-110) H 09/12/20 05:26 Lactic Acid 1.5 mmol/L (0.7-2.1) 09/11/20 22:00 Calcium 8.8 mg/dL (8.4-10.2) 09/12/20 05:26 Total Bilirubin 1.8 mg/dL (0.2-1.3) H 09/11/20 22:00 Direct Bilirubin 0.2 mg/dL (0.0-0.4) 09/11/20 22:00 Neonat Total Bilirubin Not Reportable 09/11/20 22:00 Neonat Direct Bilirubin Not Reportable 09/11/20 22:00 Neonat Indirect Bili Not Reportable 09/11/20 22:00 AST 28 U/L (14-36) 09/11/20 22:00 ALT 20 U/L (<35) 09/11/20 22:00 Alkaline Phosphatase 92 U/L (38-126) 09/11/20 22:00 Troponin I < 0.012 ng/mL 09/11/20 22:00 Total Protein 7.4 g/dL (6.3-8.2) 09/11/20 22:00 Albumin 4.0 g/dL (3.5-5.0) 09/11/20 22:00 EGFR Cancelled 09/11/20 21:20 Urine Color YASMEEN 09/11/20 20:49 Urine Appearance SLIGHTLY-CLOUDY 09/11/20 20:49 Urine pH 5.0 (5.0-9.0) 09/11/20 20:49 Ur Specific [place] 1.019 09/11/20 20:49 Urine Protein 30 mg/dL (NEGATIVE) H 09/11/20 20:49 Urine Glucose (UA) NEGATIVE mg/dL (NEGATIVE) 09/11/20 20:49 Urine Ketones 20 mg/dL (NEGATIVE) H 09/11/20 20:49 Urine Blood MODERATE (NEGATIVE) H 09/11/20 20:49 Urine Nitrite NEGATIVE (NEGATIVE) 09/11/20 20:49 Urine Bilirubin NEGATIVE (NEGATIVE) 09/11/20 20:49 Urine Urobilinogen 2.0 mg/dL (<2.0) H 09/11/20 20:49 Ur Leukocyte Esterase SMALL (NEGATIVE) H 09/11/20 20:49 Urine WBC (Auto) 22 /HPF 09/11/20 20:49 Urine RBC (Auto) 23 /HPF 09/11/20 20:49 Urine Bacteria (Auto) TRACE /HPF 09/11/20 20:49 Squamous Epi Cells Auto 4 /HPF 09/11/20 20:49 Urine Mucus (Auto) FEW /LPF 09/11/20 20:49 Urine Ascorbic Acid NEGATIVE (NEGATIVE) 09/11/20 20:49 Trevor Human Metapneumo PCR NOT DETECTED (NOT DETECT) 09/11/20 23:30 Adenovirus (PCR) NOT DETECTED (NOT DETECT) 09/11/20 23:30 B. pertussis DNA (PCR) NOT DETECTED (NOT DETECT) 09/11/20 23:30 B.parapertussis DNA PCR NOT DETECTED (NOT DETECT) 09/11/20 23:30 C. pneumoniae DNA (PCR) NOT DETECTED (NOT DETECT) 09/11/20 23:30 Coronavirus OC43 (PCR) NOT DETECTED (NOT DETECT) 09/11/20 23:30 Coronavirus HKU1 (PCR) NOT DETECTED (NOT DETECT) 09/11/20 23:30 Coronavirus 229E (PCR) NOT DETECTED (NOT DETECT) 09/11/20 23:30 Coronavirus NL63 (PCR) NOT DETECTED (NOT DETECT) 09/11/20 23:30 Influenza A (H1) PCR NOT DETECTED (NOT DETECT) 09/11/20 23:30 Influ A (H1N1/09) PCR NOT DETECTED (NOT DETECT) 09/11/20 23:30 Influenza A (H3) PCR NOT DETECTED (NOT DETECT) 09/11/20 23:30 Influenza Type A (PCR) NOT DETECTED (NOT DETECT) 09/11/20 23:30 Influenza Type B (PCR) NOT DETECTED (NOT DETECT) 09/11/20 23:30 M. pneumoniae (PCR) NOT DETECTED (NOT DETECT) 09/11/20 23:30 Parainfluenza 1 (PCR) NOT DETECTED (NOT DETECT) 09/11/20 23:30 Parainfluenza 2 (PCR) NOT DETECTED (NOT DETECT) 09/11/20 23:30 Parainfluenza 3 (PCR) NOT DETECTED (NOT DETECT) 09/11/20 23:30 Parainfluenza 4 (PCR) NOT DETECTED (NOT DETECT) 09/11/20 23:30 RSV (PCR) NOT DETECTED (NOT DETECT) 09/11/20 23:30 Entero/Rhino (PCR) NOT DETECTED (NOT DETECT) 09/11/20 23:30 SARS-CoV-2 (PCR) NOT DETECTED (NOT DETECT) 09/11/20 23:30 Slides for Path Review PATHOLOGIST REVIEWED 09/13/20 04:31 09/11/20 09/11/20 21:20 22:00 Troponin I Cancelled < 0.012 Impressions: Chest X-Ray 09/11/20 20:49 IMPRESSION: 1. Hyperinflation and mild chronic interstitial changes, consistent with COPD. 2. No focal acute infiltrates. Cannot exclude an early/mild right upper lobe pneumonia, superimposed on the mild chronic changes. Plan Health Concerns: Patient is underweight and would suggest follow-up with her PCP regarding evaluation for that. She is also been advised on the need to abstain from further smoking. Time Spent: Greater than 30 Minutes Stroke Is this a Stroke Patient?: No Acute Heart Failure Is this a Heart Failure Patient?: No
[2020-09-15 13:57] VITALS: BP 134/68
== END 2020-09-15 14:20 | disposition home or self-care (01) | DRG 189 ==
LOC: ER 19:02 → EH 09-12 00:54 → 2N 09-12 03:07 → OBSVTOIN 09-12 08:53
PROVIDERS: ADMIT Student in an Organized Health Care Education/Training Program; ATTEND Internal Medicine
PROC: 3E0234Z Introduction of Serum, Toxoid and Vaccine into Muscle, Percutaneous Approach (ICD-10-PCS; principal; 2020-09-15)
DX: J96.01 Acute respiratory failure with hypoxia (principal); J18.9 Pneumonia, unspecified organism; E44.0 Moderate protein-calorie malnutrition; J44.1 Chronic obstructive pulmonary disease with (acute) exacerbation; N39.0 Urinary tract infection, site not specified; J44.0 Chronic obstructive pulmonary disease with (acute) lower respiratory infection; E87.1 Hypo-osmolality and hyponatremia; I10 Essential (primary) hypertension; F17.210 Nicotine dependence, cigarettes, uncomplicated; Z20.822 Contact with and (suspected) exposure to COVID-19; Z88.2 Allergy status to sulfonamides; Z23 Encounter for immunization
CPT/HCPCS: 36415; 71045; 80048; 80053; 81001; 82803; 83605; 84484; 85025; 87040; 90670; 94640; 99281; 0202U; J0456; J0696; J1650; J2930; J3475; J3490; J7060; J7512